=== PATIENT | male | born 1955 | race Caucasian/White ===

== ENCOUNTER 2022-09-07 21:47 | Inpatient (IN) | payer MEDICARE ==
[~2022-09-07 21:47] MED LIST: Iopamidol-370 76% 500 ML 1 ML ONE
[2022-09-07] MEDS ORDERED: Ondansetron PF 4 MG/2 ML Vial ONE (22:02)
[2022-09-07] MEDS ORDERED: Morphine 4 MG/ML VIAL ONE (22:02)
[2022-09-07] MEDS ORDERED: Acetaminophen 500 MG TAB ONE (22:02)
[2022-09-07 22:17] LABS: #Basophils 0.1 thou/uL (0.0-0.2); #Lymphocytes 0.9 thou/uL (1.20-3.40); #Monocytes 0.6 thou/uL (0.11-0.59); %Basophils 0.6 % (0.0-1.0); %Eosinophils 0.5 % (0.0-10.0); %Lymphocytes 10.8 % (21.0-51.0); %Monocytes 7.2 % (0.0-10.0); %Neutrophils 80.9 % (42.0-75.0); Mean Corpuscular HGB CONC 33.1 g/dL (32.0-36.0); Mean Corpuscular Volume 90.7 fL (78.0-98.0); Mean Platelet Volume 6.7 fL (7.4-10.4); Platelet Count 230 thou/uL (130-400); Red Blood Cell (RBC) Count 3.67 mill/uL (4.70-6.10); White Blood Cell (WBC) Count 8.7 thou/uL (4.8-10.8)
[2022-09-07 22:30] LABS: Anion Gap 13 mmol/L (10-20); BUN (Urea Nitrogen) 23 mg/dL (8.4-25.7); Calc. Creatinine Clearance 0 mL/min (70-130); Calcium 9.6 mg/dL (7.8-10.44); Carbon Dioxide 26 mmol/L (23-31); Chloride 100 mmol/L (98-107); Estimated GFR 60; Glucose 222 mg/dL (80-115); Potassium 4.6 mmol/L (3.5-5.1); Sodium 134 mmol/L (136-145)
[2022-09-07 22:31] LABS: ALT (SGPT) Less than 7 U/L (8-55); AST (SGOT) 13 U/L (5-34); Albumin 3.9 g/dL (3.4-4.8); Alkaline Phosphatase 64 U/L (40-110); Bilirubin, Direct 0.2 mg/dL (0.1-0.3); Bilirubin, Total 0.3 mg/dL (0.2-1.2); Lipase 304 U/L (8-78); Protein, Total 7.8 g/dL (5.8-8.1)
[2022-09-07 22:46] LABS: Bilirubin Negative (Negative); Blood, Urine Negative (Negative); Clarity Clear (Clear); Glucose, Urine (Dipstick) 200 mg/dL (Negative); Ketone, Urine Negative (Negative); Leukocyte Negative Leu/uL (Negative); Nitrite Negative (Negative); Protein, Urine (Dipstick) 20 mg/dL (Neg-Trace); Specific Gravity, Urine 1.015 (1.002-1.036); Urobilinogen Normal mg/dL (Less than 2)
[2022-09-08] MEDS ORDERED: Ondansetron PF 4 MG/2 ML Vial IVP PRN (03:06)
[2022-09-08] MEDS ORDERED: Acetaminophen 650 MG Suppository PR PRN (03:06)
[2022-09-08] MEDS ORDERED: Ondansetron ODT 4 MG TAB PO PRN (03:06)
[2022-09-08] MEDS ORDERED: Senokot S 8.6-50 MG TAB PO PRN (03:06)
[2022-09-08] MEDS ORDERED: Bisacodyl 5 MG TAB PO PRN (03:06)
[2022-09-08] MEDS ORDERED: Sodium Chloride 0.9% 1,000 ML IV SCH (03:15)
[2022-09-08] MEDS ORDERED: Cefepime 2 GM VIAL ONE (04:07)
[2022-09-08 04:09] LABS: Cholesterol 115 mg/dl (< 200 Desired); HDL Cholesterol 38 mg/dL (>60 Neg Risk); Lipase 171 U/L (8-78); Magnesium 1.5 mg/dL (1.6-2.6)
[2022-09-08] MEDS ORDERED: Dextrose 5% in Water 1,000 ML IV PRN (04:13)
[2022-09-08] MEDS ORDERED: HumaLOG 300 UNITS/3 ML VIAL SC PRN ×2 (04:13)
[2022-09-08] MEDS ORDERED: Dextrose 50% Abboject 50 ML SYRINGE SLOW IVP PRN (04:13)
[2022-09-08] MEDS ORDERED: Morphine 2 MG/ML VIAL SLOW IVP PRN (04:17)
[2022-09-08] MEDS ORDERED: hydrALAZINE 20 MG/ML VIAL SLOW IVP PRN (04:22)
[2022-09-08] MEDS ORDERED: metroNIDAZOLE 250 MG TAB ONE ×2 (04:45→05:17)
[2022-09-08] MEDS ORDERED: Vancomycin 1 GM/200 ML BAG ONE (04:45)
[2022-09-08 05:01] LABS: Triglycerides 128 mg/dL (Less than 150)
[2022-09-08 05:51] LABS: LDL Cholesterol, Calculated 51 mg/dL
[2022-09-08] MEDS ORDERED: metroNIDAZOLE 500 MG in Premix Bag 1 BAG IVPB SCH (06:00)
[2022-09-08] MEDS ORDERED: Magnevist 469MG/ML 20 ML VIAL ONE (08:46)
[2022-09-08] MEDS: Cefepime 2 GM in Sodium Chloride 0.9% 100 ML IVPB SCH ×2 (09:26→17:10)
[2022-09-08] MEDS: Famotidine/PF 20 mg/2ml Vial SLOW IVP SCH ×2 (09:27→20:20)
[2022-09-08] MEDS: Sodium Chloride 0.9% 1,000 ML IV SCH ×4 (09:28→22:03)
[2022-09-08] MEDS: Morphine 4 MG/ML VIAL SLOW IVP PRN ×4 (09:33→22:05)
[2022-09-08] MEDS: Famotidine 20 MG TAB PO SCH ×2 (10:43→20:20)
[2022-09-08] MEDS ORDERED: Magnesium Sulfate 4 GM in Sodium Chloride 0.9% 250 ML 250 ML IVPB SCH (11:00)
[2022-09-08] MEDS: Acetaminophen 325 MG TAB PO PRN (15:26)
[2022-09-08] MEDS: metroNIDAZOLE 500 MG in Premix Bag 1 BAG IVPB SCH ×2 (15:27→20:20)
[2022-09-09] MEDS: Morphine 4 MG/ML VIAL SLOW IVP PRN ×4 (02:10→20:21)
[2022-09-09] MEDS: metroNIDAZOLE 500 MG in Premix Bag 1 BAG IVPB SCH ×4 (02:11→23:16)
[2022-09-09] MEDS: Sodium Chloride 0.9% 1,000 ML IV SCH ×3 (05:54→23:23)
[2022-09-09] MEDS: Cefepime 2 GM in Sodium Chloride 0.9% 100 ML IVPB SCH ×2 (05:55→20:35)
[2022-09-09 06:51] LABS: #Eosinphils 0.1 thou/uL (0.0-0.7); #Lymphocytes 1.1 thou/uL (1.20-3.40); #Monocytes 0.7 thou/uL (0.11-0.59); #Neutrophils 4.7 thou/uL (1.40-6.50); %Basophils 0.3 % (0.0-1.0); %Eosinophils 1.1 % (0.0-10.0); %Monocytes 10.3 % (0.0-10.0); %Neutrophils 72.4 % (42.0-75.0); Hemoglobin 9.5 g/dL (14.0-18.0); Mean Corpuscular Hemoglobin 29.7 pg (27.0-31.0); Mean Corpuscular Volume 92.8 fL (78.0-98.0); Mean Platelet Volume 7.1 fL (7.4-10.4); Platelet Count 171 thou/uL (130-400); RBC Distribution Width 14.7 % (11.5-14.5); Red Blood Cell (RBC) Count 3.19 mill/uL (4.70-6.10); White Blood Cell (WBC) Count 6.6 thou/uL (4.8-10.8)
[2022-09-09 07:03] LABS: ALT (SGPT) 8 U/L (8-55); AST (SGOT) 11 U/L (5-34); Albumin 3.1 g/dL (3.4-4.8); Alkaline Phosphatase 47 U/L (40-110); Anion Gap 12 mmol/L (10-20); BUN (Urea Nitrogen) 14 mg/dL (8.4-25.7); Bilirubin, Total 0.3 mg/dL (0.2-1.2); Calc. Creatinine Clearance 80 mL/min (70-130); Calcium 8.6 mg/dL (7.8-10.44); Carbon Dioxide 21 mmol/L (23-31); Chloride 103 mmol/L (98-107); Estimated GFR 82; Globulin 3.2 g/dL (2.4-3.5); Glucose 101 mg/dL (80-115); Lipase 27 U/L (8-78); Potassium 3.9 mmol/L (3.5-5.1); Protein, Total 6.3 g/dL (5.8-8.1); Sodium 132 mmol/L (136-145)
[2022-09-09] MEDS: Famotidine 20 MG TAB PO SCH ×2 (08:44→20:25)
[2022-09-09] MEDS: Famotidine/PF 20 mg/2ml Vial SLOW IVP SCH (08:46)
[2022-09-09] MEDS: Pramipexole Di-HCl 1 MG TAB PO SCH (20:25)
[2022-09-09] MEDS: Gabapentin 300 MG CAP PO SCH (20:26)
[2022-09-09] MEDS: Sucralfate 1 GM TAB PO SCH (20:26)
[2022-09-09] MEDS ORDERED: Famotidine 20 MG TAB PO SCH (21:00)
[2022-09-09] MEDS ORDERED: Morphine 4 MG/ML VIAL SLOW IVP PRN (23:16)
[2022-09-09] MEDS: tiZANidine HCl 4 MG TAB PO PRN (23:21)
[2022-09-09] MEDS: Calcium Carbonate 500 MG ChewTAB PO PRN (23:37)
[2022-09-10] MEDS: metroNIDAZOLE 500 MG in Premix Bag 1 BAG IVPB SCH ×2 (03:04→08:54)
[2022-09-10] MEDS: Morphine 4 MG/ML VIAL SLOW IVP PRN ×5 (03:11→21:05)
[2022-09-10] MEDS: Sodium Chloride 0.9% 1,000 ML IV SCH ×4 (04:21→18:19)
[2022-09-10 06:39] LABS: #Eosinphils 0.1 thou/uL (0.0-0.7); #Lymphocytes 1.1 thou/uL (1.20-3.40); #Monocytes 0.5 thou/uL (0.11-0.59); #Neutrophils 3.2 thou/uL (1.40-6.50); %Basophils 0.1 % (0.0-1.0); %Eosinophils 1.3 % (0.0-10.0); %Lymphocytes 21.7 % (21.0-51.0); %Monocytes 11.3 % (0.0-10.0); %Neutrophils 65.7 % (42.0-75.0); Hemoglobin 9.2 g/dL (14.0-18.0); Mean Corpuscular HGB CONC 31.6 g/dL (32.0-36.0); Mean Corpuscular Hemoglobin 29.3 pg (27.0-31.0); Mean Corpuscular Volume 92.5 fL (78.0-98.0); Mean Platelet Volume 7.5 fL (7.4-10.4); Platelet Count 162 thou/uL (130-400); RBC Distribution Width 14.5 % (11.5-14.5); Red Blood Cell (RBC) Count 3.13 mill/uL (4.70-6.10); White Blood Cell (WBC) Count 4.8 thou/uL (4.8-10.8)
[2022-09-10 07:06] LABS: Sodium 136 mmol/L (136-145)
[2022-09-10 07:07] LABS: ALT (SGPT) Less than 7 U/L (8-55); AST (SGOT) 12 U/L (5-34); Alkaline Phosphatase 48 U/L (40-110); Anion Gap 12 mmol/L (10-20); BUN (Urea Nitrogen) 15 mg/dL (8.4-25.7); Bilirubin, Total 0.2 mg/dL (0.2-1.2); Calc. Creatinine Clearance 83 mL/min (70-130); Carbon Dioxide 23 mmol/L (23-31); Chloride 105 mmol/L (98-107); Estimated GFR 86; Globulin 3.5 g/dL (2.4-3.5); Glucose 112 mg/dL (80-115); Lipase 35 U/L (8-78); Potassium 3.9 mmol/L (3.5-5.1); Protein, Total 6.5 g/dL (5.8-8.1)
[2022-09-10] MEDS ORDERED: Cefepime 2 GM in Sodium Chloride 0.9% 100 ML IVPB SCH (08:00)
[2022-09-10] MEDS: Ezetimibe 10 MG TAB PO SCH (08:07)
[2022-09-10] MEDS: Pramipexole Di-HCl 1 MG TAB PO SCH ×2 (08:07→20:56)
[2022-09-10] MEDS: Sucralfate 1 GM TAB PO SCH ×4 (08:07→21:07)
[2022-09-10] MEDS: Fenofibrate Nanocrystallized 145 MG TAB PO SCH (08:07)
[2022-09-10] MEDS: Pancrelipase DR 12,000 1 CAP PO SCH ×3 (08:07→16:40)
[2022-09-10] MEDS: Folic Acid 1 MG TAB PO SCH (08:08)
[2022-09-10] MEDS: Famotidine 20 MG TAB PO SCH ×2 (08:08→20:57)
[2022-09-10] MEDS: Gabapentin 300 MG CAP PO SCH ×2 (08:08→20:56)
[2022-09-10] MEDS: Nicotine 21 MG PATCH TOP SCH (08:21)
[2022-09-10] MEDS ORDERED: Nicotine 7 MG PATCH TD SCH (09:00)
[2022-09-10 12:46] VITALS: BMI 27.7
[2022-09-10] MEDS: tiZANidine HCl 4 MG TAB PO PRN (20:56)
[2022-09-11] MEDS: Sodium Chloride 0.9% 1,000 ML IV SCH ×4 (02:02→22:03)
[2022-09-11] MEDS: Morphine 4 MG/ML VIAL SLOW IVP PRN ×5 (02:03→21:58)
[2022-09-11 06:37] LABS: #Eosinphils 0.1 thou/uL (0.0-0.7); #Monocytes 0.5 thou/uL (0.11-0.59); #Neutrophils 2.3 thou/uL (1.40-6.50); %Basophils 0.2 % (0.0-1.0); %Eosinophils 1.7 % (0.0-10.0); %Lymphocytes 26.2 % (21.0-51.0); %Monocytes 12.4 % (0.0-10.0); %Neutrophils 59.5 % (42.0-75.0); Hemoglobin 9.3 g/dL (14.0-18.0); Mean Corpuscular Hemoglobin 28.8 pg (27.0-31.0); Mean Corpuscular Volume 92.9 fL (78.0-98.0); Mean Platelet Volume 7.4 fL (7.4-10.4); Platelet Count 154 thou/uL (130-400); RBC Distribution Width 14.6 % (11.5-14.5); Red Blood Cell (RBC) Count 3.24 mill/uL (4.70-6.10); White Blood Cell (WBC) Count 3.8 thou/uL (4.8-10.8)
[2022-09-11 07:51] LABS: ALT (SGPT) Less than 7 U/L (8-55); AST (SGOT) 9 U/L (5-34); Albumin 2.9 g/dL (3.4-4.8); Alkaline Phosphatase 45 U/L (40-110); Anion Gap 11 mmol/L (10-20); BUN (Urea Nitrogen) 14 mg/dL (8.4-25.7); Bilirubin, Total Less than 0.2 mg/dL (0.2-1.2); Calc. Creatinine Clearance 88 mL/min (70-130); Carbon Dioxide 23 mmol/L (23-31); Chloride 107 mmol/L (98-107); Estimated GFR 92; Globulin 3.4 g/dL (2.4-3.5); Glucose 125 mg/dL (80-115); Lipase 31 U/L (8-78); Potassium 3.9 mmol/L (3.5-5.1); Protein, Total 6.3 g/dL (5.8-8.1); Sodium 137 mmol/L (136-145)
[2022-09-11] MEDS: Pancrelipase DR 12,000 1 CAP PO SCH ×3 (08:13→17:20)
[2022-09-11] MEDS: Nicotine 21 MG PATCH TOP SCH (08:13)
[2022-09-11] MEDS: Ezetimibe 10 MG TAB PO SCH (08:14)
[2022-09-11] MEDS: Fenofibrate Nanocrystallized 145 MG TAB PO SCH (08:14)
[2022-09-11] MEDS: Famotidine 20 MG TAB PO SCH ×2 (08:14→20:46)
[2022-09-11] MEDS: Pramipexole Di-HCl 1 MG TAB PO SCH ×2 (08:14→20:45)
[2022-09-11] MEDS: Gabapentin 300 MG CAP PO SCH ×2 (08:15→20:45)
[2022-09-11] MEDS: Folic Acid 1 MG TAB PO SCH (08:16)
[2022-09-11] MEDS: Sucralfate 1 GM TAB PO SCH ×4 (08:16→20:46)
[2022-09-11] MEDS: Acetaminophen 325 MG TAB PO PRN (09:36)
[2022-09-11] MEDS: Calcium Carbonate 500 MG ChewTAB PO PRN (20:46)
[2022-09-12] MEDS: Morphine 4 MG/ML VIAL SLOW IVP PRN ×3 (03:20→12:48)
[2022-09-12 08:20] LABS: #Lymphocytes 0.8 thou/uL (1.20-3.40); #Monocytes 0.5 thou/uL (0.11-0.59); #Neutrophils 3.7 thou/uL (1.40-6.50); %Basophils 0.1 % (0.0-1.0); %Eosinophils 0.6 % (0.0-10.0); %Lymphocytes 16.5 % (21.0-51.0); %Monocytes 9.6 % (0.0-10.0); %Neutrophils 73.1 % (42.0-75.0); Hemoglobin 8.8 g/dL (14.0-18.0); Mean Corpuscular Hemoglobin 29.1 pg (27.0-31.0); Mean Platelet Volume 7.7 fL (7.4-10.4); Platelet Count 150 thou/uL (130-400); RBC Distribution Width 14.5 % (11.5-14.5); Red Blood Cell (RBC) Count 3.01 mill/uL (4.70-6.10)
[2022-09-12] MEDS: Fenofibrate Nanocrystallized 145 MG TAB PO SCH (08:22)
[2022-09-12] MEDS: Gabapentin 300 MG CAP PO SCH (08:22)
[2022-09-12] MEDS: Pramipexole Di-HCl 1 MG TAB PO SCH (08:22)
[2022-09-12] MEDS: Folic Acid 1 MG TAB PO SCH (08:22)
[2022-09-12] MEDS: Ezetimibe 10 MG TAB PO SCH (08:22)
[2022-09-12] MEDS: Sucralfate 1 GM TAB PO SCH ×2 (08:22→12:41)
[2022-09-12] MEDS: Famotidine 20 MG TAB PO SCH (08:22)
[2022-09-12] MEDS: Pancrelipase DR 12,000 1 CAP PO SCH ×2 (08:22→12:41)
[2022-09-12] MEDS: Nicotine 21 MG PATCH TOP SCH (08:23)
[2022-09-12 08:34] LABS: Anion Gap 9 mmol/L (10-20); BUN (Urea Nitrogen) 15 mg/dL (8.4-25.7); Calc. Creatinine Clearance 86 mL/min (70-130); Carbon Dioxide 28 mmol/L (23-31); Chloride 106 mmol/L (98-107); Estimated GFR 90; Glucose 127 mg/dL (80-115); Potassium 4.3 mmol/L (3.5-5.1); Sodium 139 mmol/L (136-145)
[2022-09-12] MEDS ORDERED: Enoxaparin Sodium 40 MG/0.4 ML SYRINGE SC SCH (09:00)
[2022-09-12] MEDS: Sodium Chloride 0.9% 1,000 ML IV SCH (10:42)
[2022-09-12 14:35] VITALS: BP 133/66; TEMP 98
== END 2022-09-12 15:05 | disposition home health service (06) | DRG 439 ==
LOC: ERS 21:47 → T4-A 09-08 03:14
PROVIDERS: ADMIT Internal Medicine; ATTEND Internal Medicine
DX: K85.90 Acute pancreatitis without necrosis or infection, unspecified (principal); E87.1 Hypo-osmolality and hyponatremia; K86.2 Cyst of pancreas; N17.9 Acute kidney failure, unspecified; Z20.822 Contact with and (suspected) exposure to COVID-19; K86.1 Other chronic pancreatitis; E88.09 Other disorders of plasma-protein metabolism, not elsewhere classified; F17.210 Nicotine dependence, cigarettes, uncomplicated; E11.9 Type 2 diabetes mellitus without complications; J44.9 Chronic obstructive pulmonary disease, unspecified; E78.5 Hyperlipidemia, unspecified; G89.4 Chronic pain syndrome; M62.838 Other muscle spasm; Z88.5 Allergy status to narcotic agent; Z88.0 Allergy status to penicillin; Z90.49 Acquired absence of other specified parts of digestive tract; Z98.890 Other specified postprocedural states
CPT/HCPCS: 36415; 36416; 71045; 74177; 74183; 80048; 80053; 80061; 80076; 81003; 83605; 83690; 83735; 84443; 84484; 85025; 87040; 93005; 93010; 96374; 96375; A9579; J0692; J1650; J2270; J2405; J3370; J3475; J3490; J7050; Q9967; S0028; U0003; U0005